=== PATIENT | female | born 1945 | race Caucasian/White ===

== ENCOUNTER 2019-01-09 09:48 | Inpatient (IN) | payer OTHER ==
[~2019-01-09] VITALS: Ht 152.4 cm; Wt 59.0 kg
[2019-01-09] MEDS ORDERED: SIMVASTATIN5 MG (10:23)
[2019-01-09] MEDS ORDERED: ATACAND16 MG PO (10:23)
[2019-01-09] MEDS ORDERED: ACTOS30 MG (10:23)
[2019-01-09] MEDS ORDERED: FORTAMET500 MG PO (10:24)
[2019-01-09] MEDS ORDERED: OPTIMAL D350000 UNIT PO (10:24)
[2019-01-18] MEDS ORDERED: AMLODIPINE BESY10 MG PO (07:58)
[2019-01-18] MEDS ORDERED: CLOTRIMAZOLE10 MG MM (07:58)
== END 2019-01-18 13:29 | disposition home health service (06) | DRG 330 ==
LOC: ER 09:48 → SURH 17:38
PROVIDERS: ADMIT Internal Medicine
PROC: 0D1N4Z4 Bypass Sigmoid Colon to Cutaneous, Percutaneous Endoscopic Approach (ICD-10-PCS; principal; 2019-01-09)
PROC: 0T9B70Z Drainage of Bladder with Drainage Device, Via Natural or Artificial Opening (ICD-10-PCS; 2019-01-09)
DX: N82.3 Fistula of vagina to large intestine (principal); N39.0 Urinary tract infection, site not specified; E87.0 Hyperosmolality and hypernatremia; B37.0 Candidal stomatitis; K63.89 Other specified diseases of intestine; E03.8 Other specified hypothyroidism; R31.0 Gross hematuria; E87.6 Hypokalemia; I10 Essential (primary) hypertension; N39.8 Other specified disorders of urinary system; E86.0 Dehydration; E11.9 Type 2 diabetes mellitus without complications; Z79.4 Long term (current) use of insulin

== ENCOUNTER 2020-03-17 12:27 | Outpatient (CLI) | payer OTHER ==
[~2020-03-17 12:27] MED LIST: ACTOS30 MG; AMLODIPINE BESY10 MG PO; ATACAND16 MG PO; CLOTRIMAZOLE10 MG MM; FORTAMET500 MG PO; OPTIMAL D350000 UNIT PO; SIMVASTATIN5 MG
== END 2020-03-17 12:31 | disposition home or self-care (01) ==
LOC: LAB 12:27
PROVIDERS: ATTEND Internal Medicine Geriatric Medicine
DX: N39.0 Urinary tract infection, site not specified (principal); B96.89 Other specified bacterial agents as the cause of diseases classified elsewhere